=== PATIENT | female | born 1960 | race Caucasian/White ===

== ENCOUNTER → 2017-11-20 | Outpatient (CLI) | payer MEDICARE, OTHER ==
[~2017-11-20] MED LIST: ACETAMINOPHEN-1 EAC1 PO; ADVAIR 100-501 EACH INH; ALBUTEROL INH; ALBUTEROL NEB; ALORA1 EAC1; AMITIZA 24 MCG24 MC1; ATROVENT30 ML; AVAPRO 150 MG150 M1 PO; AZITHROMYCIN 2250 MG PO; BACLOFEN 10MG T10 M1 PO; BACLOFEN 10MG T10 MG PO; BACTRIM DS TAB1 EACH PO; BENADRYL25 MG PO; BIOTIN-D1 GM PO; CALCIUM 500 +1 EAC4 PO; CALCIUM 500 +1 EAC5; CALCIUM 500 +1 EAC5 PO; CARDIZEM CD240 MG PO; CARISOPRODOL 3350 MG PO; CENTRUM SILVER1 EAC4 PO; CLARITIN10 MG PO; DIFLUCAN150 M1 PO; DUONEB 2.5-0.5 M3 ML INH; EPIPEN 2-P0.3 MG/0.3 IM; EPIPEN 2-P0.3 MG/0.3 SUBQ; EPIPEN0.3 MG/0.3; ESTRADIOL0.5 MG PO; FLEXERIL PO; FLONASE 0.05%50 MCG; HYDROCHLOROTH12.5 M1 PO; LIORESAL 10 MG10 MG PO; MACROBID 100 M100 M2 PO; MAXALT MLT10 MG PO; METOPROLOL SUCC25 M1 PO; MORPHINE; MORPHINE 110 MG/1 ML IT; MORPHINE 2 IT; MORPHINE URETHRAL; MUCINEX600 MG PO; MULTIVITAMIN; NAPROSYN500 MG PO; NORCO 5-325 TA1 EACH PO; OMEPRAZOLE20 M2 PO; OXYCONTIN10 M1 PO; PERCOCET 5-3251 EACH; PHENERGAN 25 MG25 M1 PO; PREDNISONE 10 M10 M1 PO; PRILOSEC20 MG; PROVENTIL IH; RANITIDINE HCL300 M1 PO; ROBINUL1 MG PO; SINGULAIR 10 MG10 M1 PO; VENTOLIN HFA 1818 GM INH; VICODIN 5-5001 EACH PO; VIVELLE-DOT1 EAC1; XANAX 0.5 MG0.5 M1 PO; XANAX 0.5 MG0.5 MG PO; XARELTO10 MG PO; ZANTAC 150MG T150 M1 PO; ZANTAC 150MG T150 MG PO; ZINC50 M1 PO; ZOFRAN ODT4 MG PO
[2017-11-20 15:26] LABS: ALBUMIN 3.9 g/dL (3.4-5.0); CREATININE 0.7 mg/dL (0.6-1.3); DIRECT BILIRUBIN 0.1 mg/dL (<0.1-0.3); TOTAL BILIRUBIN 0.3 mg/dL (<0.1-1.0); TOTAL PROTEIN 6.4 g/dL (6.4-8.2)
== END ==
LOC: M.LAB 14:38
PROVIDERS: Anesthesiology Pain Medicine
DX: M96.1 Postlaminectomy syndrome, not elsewhere classified (principal); J45.909 Unspecified asthma, uncomplicated

== ENCOUNTER → 2018-01-22 | Outpatient (CLI) | payer MEDICARE, OTHER | LOC: M.LAB 15:53 | DX: I10 Essential (primary) hypertension (principal); F41.1 Generalized anxiety disorder ==

== ENCOUNTER → 2018-06-15 | Outpatient (CLI) | payer MEDICARE, OTHER | LOC: M.RAD 13:16 | DX: N91.2 Amenorrhea, unspecified (principal); I10 Essential (primary) hypertension; J45.909 Unspecified asthma, uncomplicated; Z78.0 Asymptomatic menopausal state ==

== ENCOUNTER 2018-10-01 01:01 | Emergency (ER) | payer MEDICARE, OTHER ==
[~2018-10-01] VITALS: Ht 170.2 cm; Wt 69.8 kg
[2018-10-01] MEDS ORDERED: PREDNISONE 10 M10 MG (01:11)
[2018-10-01 01:44] LABS: ABSOLUTE MONOCYTES 0.2 thou/uL (0.0-1.2); ABSOLUTE NEUTROPHILS 4.3 thou/uL (1.6-8.1); BASOPHILS 0.5 %; EOSINOPHILS 0.4 %; HEMATOCRIT 40.6 % (37.0-47.0); HEMOGLOBIN 13.4 gm/dL (12.0-15.0); LYMPHOCYTES 18.4 %; MCH 28.4 pg (26.0-34.0); MCV 86.2 fL (80.0-100.0); MONOCYTES 2.9 %; MPV 7.8 fl. (7.2-11.1); NUCLEATED RBCS 0 /100WBC; PLATELET COUNT* 271 thou/uL (150-400); POLYS 77.8 %; WBC 5.5 thou/uL (4.0-11.0)
[2018-10-01 01:52] LABS: ANION GAP 7 mmol/L (7-16); BUN 9 mg/dL (7-18); CALCIUM 9.5 mg/dL (8.5-10.1); CHLORIDE 96 mmol/L (98-107); CO2 30 mmol/L (21-32); CREATININE 0.7 mg/dL (0.6-1.3); GLUCOSE 193 mg/dL (70-99); POTASSIUM 3.9 mmol/L (3.5-5.1); SODIUM 133 mmol/L (136-145)
[2018-10-01 02:19] LABS: ALBUMIN 4.5 g/dL (3.4-5.0); ALKALINE PHOSPHATASE 90 U/L (46-116); LIPASE 166 U/L (73-393); NT-PRO BRAIN NAT PEPTIDE 485 pg/mL (<300); SGOT 24 U/L (15-37); SGPT 30 U/L (30-65); TOTAL BILIRUBIN 0.2 mg/dL (<0.1-1.0); TOTAL PROTEIN 7.4 g/dL (6.4-8.2); TROPONIN-I LEVEL <0.06 ng/mL (<0.06)
[2018-10-01 02:30] LABS: MAGNESIUM 1.7 mg/dL (1.8-2.4)
[2018-10-01 05:22] LABS: URINE BILIRUBIN NEGATIVE (Negative); URINE BLOOD NEGATIVE (Negative); URINE CLARITY CLEAR; URINE COLOR YELLOW; URINE GLUCOSE-RANDOM NEGATIVE (Negative); URINE KETONES NEGATIVE (Negative); URINE LEUKOCYTES-REFLEX NEGATIVE (Negative); URINE NITRITE-REFLEX NEGATIVE (Negative); URINE PROTEIN NEGATIVE (Negative); URINE SPECIFIC GRAVITY 1.015 (1.005-1.030); URINE UROBILINOGEN 0.2 E.U./dl (0.2-1.0)
[2018-10-01 05:35] VITALS: BP 177/92
--- NOTE | 2018-10-01 09:54 | EKG ---
[place] [address] ELECTROCARDIOGRAM REPORT Name: ABBEY COVINGTON Room: [facility]#: [id number] Admission: 10/01/18 Attend Phys: Discharge: 10/01/18 Date of : 56 Report #: [id number] THIS REPORT FOR: //name// [facility] ED Test Date: 2018-10-01 Test Time: 01:07:05 Pat Name: ABBEY OLIVEIRA Department: Room: Gender: F Solar Power Installer: : 1960 Requested By: Jamshid Marcial Order Number: [id number] MD: Marcin Joyce Measurements Intervals [place] Rate: 113 P: 46 [place]: 177 QRS: 2 QRSD: 94 T: 16 QT: 297 QTc: 408 Interpretive Statements Sinus tachycardia poor r wave progression Probable left atrial enlargement Left ventricular hypertrophy Compared to ECG 03/03/2017 19:23:46 no change Electronically Signed On 10-01-2018 9:53:54 MANAGER PROPOSAL by Marcin Joyce [email or web address] <ELECTRONICALLY SIGNED> By: Marcin Joyce MD, [facility] 10/01/18 0953 0107 010 Marcin Joyce MD, [facility] /EPI
--- NOTE | 2018-10-01 09:57 | EKG ---
[place] [address] ELECTROCARDIOGRAM REPORT Name: ABBEY COVINGTON Room: [facility]#: [id number] Admission: 10/01/18 Attend Phys: Discharge: 10/01/18 Date of : 56 Report #: [id number] THIS REPORT FOR: //name// [facility] ED Test Date: 2018-10-01 Test Time: 03:40:58 Pat Name: ABBEY OLIVEIRA Department: Room: Gender: F Rn First Assistant: [facility] : 1960 Requested By: Jamshid Marcial Order Number: [id number] MD: Marcin Joyce Measurements Intervals [place] Rate: 105 P: 53 [place]: 194 QRS: 12 QRSD: 83 T: 15 QT: 319 QTc: 422 Interpretive Statements Sinus tachycardia Probable left atrial enlargement poor r wave progression Probable left ventricular hypertrophy Electronically Signed On 10-01-2018 9:57:15 BRANCH MAKER by Marcin Joyce [email or web address] <ELECTRONICALLY SIGNED> By: Marcin Joyce MD, [facility] 10/01/18 0957 0340 0340 Marcin Joyce MD, FACC /EPI
== END 2018-10-01 05:40 | disposition home or self-care (01) ==
LOC: M.ERS 01:01
PROVIDERS: Emergency Medicine Emergency Medical Services
DX: R51 Headache (principal); R00.2 Palpitations; J45.909 Unspecified asthma, uncomplicated; M54.9 Dorsalgia, unspecified; G89.29 Other chronic pain; K21.9 Gastro-esophageal reflux disease without esophagitis; I10 Essential (primary) hypertension; Z90.710 Acquired absence of both cervix and uterus; Z88.1 Allergy status to other antibiotic agents; Z88.0 Allergy status to penicillin; Z88.8 Allergy status to other drugs, medicaments and biological substances

== ENCOUNTER 2018-10-20 15:24 | Inpatient (IN) | payer MEDICARE ==
[~2018-10-20] VITALS: Ht 170.2 cm; Wt 79.5 kg
[~2018-10-20 15:24] MED LIST changes: +PREDNISONE 10 M10 MG
[2018-10-20 15:29] VITALS: BP 177/91
[2018-10-20 15:51] LABS: ABSOLUTE EOSINOPHILS 0.1 thou/uL (0.0-0.7); ABSOLUTE LYMPHOCYTES 1.8 thou/uL (0.8-5.3); ABSOLUTE MONOCYTES 0.6 thou/uL (0.0-1.2); ABSOLUTE NEUTROPHILS 3.2 thou/uL (1.6-8.1); BASOPHILS 0.7 %; HEMATOCRIT 41.4 % (37.0-47.0); HEMOGLOBIN 13.9 gm/dL (12.0-15.0); LYMPHOCYTES 31.4 %; MCH 28.8 pg (26.0-34.0); MCHC 33.7 g/dL (28.0-37.0); MCV 85.5 fL (80.0-100.0); MONOCYTES 10.6 %; MPV 7.3 fl. (7.2-11.1); NUCLEATED RBCS 0 /100WBC; PLATELET COUNT* 272 thou/uL (150-400); POLYS 56.3 %; RBC 4.84 mil/uL (4.20-5.00); RDW-CV 14.1 % (10.5-14.5); WBC 5.6 thou/uL (4.0-11.0)
[2018-10-20 16:14] LABS: ANION GAP 9 mmol/L (7-16); BUN 12 mg/dL (7-18); CALCIUM 9.4 mg/dL (8.5-10.1); CHLORIDE 93 mmol/L (98-107); CO2 30 mmol/L (21-32); CREATININE 0.7 mg/dL (0.6-1.3); GLUCOSE 160 mg/dL (70-99); POTASSIUM 3.8 mmol/L (3.5-5.1); SODIUM 132 mmol/L (136-145)
[2018-10-20 16:25] LABS: ALBUMIN 4.3 g/dL (3.4-5.0); ALKALINE PHOSPHATASE 89 U/L (46-116); LIPASE 153 U/L (73-393); MAGNESIUM 1.6 mg/dL (1.8-2.4); NT-PRO BRAIN NAT PEPTIDE 65 pg/mL (<300); SGOT 17 U/L (15-37); SGPT 21 U/L (30-65); TOTAL BILIRUBIN 0.3 mg/dL (<0.1-1.0); TOTAL PROTEIN 7.3 g/dL (6.4-8.2); TROPONIN-I LEVEL <0.06 ng/mL (<0.06)
[2018-10-20 18:25] VITALS: BP 162/84
[2018-10-20 18:50] VITALS: BP 160/80
[2018-10-20] MEDS ORDERED: MOBIC15 MG PO (19:25)
[2018-10-20] MEDS ORDERED: AVAPRO75 MG PO (19:26)
[2018-10-20] MEDS ORDERED: PAIN PUMP (19:30)
[2018-10-20 20:21] VITALS: BP 150/84
[2018-10-21] VITALS: BP 113/63
[2018-10-21 04:00] VITALS: BP 142/71
[2018-10-21 05:22] LABS: ABSOLUTE EOSINOPHILS 0.1 thou/uL (0.0-0.7); ABSOLUTE LYMPHOCYTES 2.1 thou/uL (0.8-5.3); ABSOLUTE MONOCYTES 0.7 thou/uL (0.0-1.2); BASOPHILS 0.6 %; EOSINOPHILS 0.9 %; HEMATOCRIT 39.5 % (37.0-47.0); HEMOGLOBIN 13.3 gm/dL (12.0-15.0); LYMPHOCYTES 30.3 %; MCH 28.4 pg (26.0-34.0); MCHC 33.6 g/dL (28.0-37.0); MCV 84.6 fL (80.0-100.0); MPV 7.5 fl. (7.2-11.1); NUCLEATED RBCS 0 /100WBC; PLATELET COUNT* 268 thou/uL (150-400); POLYS 58.2 %; RBC 4.66 mil/uL (4.20-5.00); WBC 6.8 thou/uL (4.0-11.0)
[2018-10-21 05:38] LABS: CALCIUM 9.6 mg/dL (8.5-10.1); CREATININE 0.7 mg/dL (0.6-1.3); POTASSIUM 3.4 mmol/L (3.5-5.1)
[2018-10-21 08:10] VITALS: BP 145/73
[2018-10-21 11:12] VITALS: BP 134/75
--- NOTE | 2018-10-21 13:52 | EKG ---
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1960 Requested By: Jamshid Marcial Order Number: [id number] MD: Marcin Joyce Measurements Intervals [place] Rate: 105 P: 60 CT: 203 QRS: 41 QRSD: 89 T: 12 QT: 335 QTc: 443 Interpretive Statements Sinus tachycardia LAE, consider biatrial enlargement Left ventricular hypertrophy Anterior infarct, old Compared to ECG 10/01/2018 03:40:58 no change Electronically Signed On 10-21-2018 13:52:07 VENEER SPLICER by Marcin Joyce [email or web address] <ELECTRONICALLY SIGNED> By: Marcin Joyce MD, FAC 10/21/18 1352 1530 1530 Marcin Joyce MD, [facility] /EPI
--- NOTE | 2018-10-22 10:46 | CON ---
[address] [address] CONSULTATION Name: ABBEY COVINGTON Room: [address] M.R.#: [id number] Admission: 10/20/18 Attend Phys: Darius Taylor MD Discharge: 10/21/18 Date of : 56 Report #: [id number] THIS REPORT FOR: //name// CC: Darius Ramirez MD DATE OF SERVICE: 10/21/2018 TYPE OF REPORT: Cardiology consultation. HISTORY OF PRESENT ILLNESS: The patient is a 58-year-old white female who I was asked to see in the hospital today after she complained of tachycardia. The patient has an extensive past medical history. She previously was followed by my partner, Dr. Harvey who recently retired. She has had multiple hospitalizations here at [facility]. She was actually seen by Dr. Harvey back in 2012 when she complained of chest pain. She noticed that time to have sinus tachycardia with PACs and PVCs. She has had extensive cardiac workup in the past. She underwent a nuclear stress test in 2011 that showed no evidence of ischemia with an ejection fraction of 64%. She had an echocardiogram in 2016 that showed a normal ejection fraction. The patient was actually last admitted here to [facility] in February of 2017 with pneumonia. She has a long history of palpitations. She has been on a beta sil in the past but cannot tolerate them. She actually came to the Emergency Room in [place] complained of palpitation. She was noted to be in a sinus tachycardia. She sent home from the Emergency Room. She was seen by my nurse practitioner and given an event recorder. She just received event recorder yesterday. The patient states that last night she felt her heart racing, her blood pressure elevated, she felt short of breath, her hands were tingling and she felt lightheaded and nauseated. She came to the Emergency Room and was admitted. I was asked to see her for further evaluation and treatment. She is not very active, does go for walks. She has chronic back pain, has a morphine pump in place. She had a nerve stimulator at one time but did not seem to get any relief. She continues to go to the pain clinic. She denies any significant chest pain or dyspnea on exertion or edema. She has had no syncope. PAST MEDICAL HISTORY: She has had a hysterectomy, surgery for pectus excavatum in the past and she has had back surgery. She has a history of hypertension but no history of diabetes. MEDICATIONS: Consists of the following: She is on albuterol inhaler for asthma, Xanax, baclofen, Soma and inhaler for asthma, Avapro for hypertension, Mobic, Singulair and ranitidine. ALLERGIES: She has an intolerance to multiple medications including DOXYCYCLINE, LEVOFLOXACIN, PENICILLIN [place] [address] CONSULTATION Name: ALISA ABBEY OLIVEIRA Room: [address]#: [id number] Admission: 10/20/18 Attend Phys: Darius Taylor MD Discharge: 10/21/18 Date of : 56 Report #: [id number] FAMILY HISTORY: Her mother had bypass surgery. SOCIAL HISTORY: She is . She and her live in [place]. She is not working at this time. Nonsmoker. Rarely drinks alcohol. REVIEW OF SYSTEMS: There has been no history of stroke. She does have asthma. No history of peptic ulcer disease, liver disease, kidney disease or cancer. She does wear glasses. No history of psychiatric illness. PHYSICAL EXAMINATION: GENERAL: Revealed a middle-aged female, appeared in no distress. VITAL SIGNS: She had a blood pressure of 130/70 and pulse is 80. HEENT: She was anicteric. Conjunctivae pink. Mucous members moist. NECK: Veins nondistended. No carotid bruits. Neck supple. CHEST: Clear to auscultation. CARDIOVASCULAR: Regular rate and rhythm. ABDOMEN: Soft and nontender. EXTREMITIES: Had no edema. SKIN: Warm and dry. NEUROLOGICAL: Nonfocal. PSYCHIATRIC AND MOOD: She appeared somewhat depressed. CARDIOLOGICAL DATA: ECG on admission showed a sinus tachycardia with nonspecific ST-segment changes. On the monitor, she has remained in sinus rhythm. LABORATORY DATA: Her workup: Sodium 133 and creatinine 0.7. Liver function studies were normal. Troponin 0.06. TSH 0.7. White blood cell count 6.8 and hemoglobin 13.3. RADIOLOGICAL DATA: X-rays, she had CT scan of the chest using a PE protocol that showed no evidence of pulmonary embolus, mild interstitial lung markings were noted. Previous CT scan of the head done several weeks ago showed no acute abnormality. Her chest x-ray last night showed dextroscoliosis, otherwise unchanged. IMPRESSION AND RECOMMENDATIONS: 1. Palpitations. The patient had an event recorder on last night that showed no significant arrhythmia. I would not treat at this time. 2. Chronic back pain. The patient has a morphine pump in place. 3. Hypertension. The patient is on an angiotensin receptor sil. 4. Asthma. 5. Complaints of intermittent episodes of elevated heart rate and blood [address] [address] CONSULTATION Name: ABBEY COVINGTON Room: [address]#: [id number] Admission: 10/20/18 Attend Phys: Darius Taylor MD Discharge: 10/21/18 Date of : 56 Report #: [id number]. The patient does have a history of headaches. I would consider a 24-hour urine screen to evaluate for a pheochromocytoma. <ELECTRONICALLY SIGNED> By: Marcin Joyce MD, FACC 10/22/18 1046 1638 [id number] Joyce MD, FACC /nt
[2018-10-24 07:35] LABS: METANEPHRINE-PL 30 pg/mL (0-62); NORMETANEPHRINE - PL 75 pg/mL (0-145)
== END 2018-10-21 13:50 | disposition home or self-care (01) | DRG 641 ==
LOC: M.ERS 15:24 → M.TBA-ER 16:54 → M.2W 16:54
PROVIDERS: Emergency Medicine Emergency Medical Services; ADMIT Internal Medicine
DX: E87.1 Hypo-osmolality and hyponatremia (principal); F11.20 Opioid dependence, uncomplicated; R07.89 Other chest pain; F41.9 Anxiety disorder, unspecified; M19.90 Unspecified osteoarthritis, unspecified site; I10 Essential (primary) hypertension; J45.909 Unspecified asthma, uncomplicated; G89.29 Other chronic pain; M54.9 Dorsalgia, unspecified; Z88.1 Allergy status to other antibiotic agents; Z90.710 Acquired absence of both cervix and uterus; Z79.899 Other long term (current) drug therapy; Z88.0 Allergy status to penicillin; Z88.8 Allergy status to other drugs, medicaments and biological substances

== ENCOUNTER → 2018-11-13 | Outpatient (CLI) | payer MEDICARE, OTHER ==
[~2018-11-13] MED LIST changes: +AVAPRO75 MG PO; +MOBIC15 MG PO; +PAIN PUMP
== END ==
LOC: M.ULTRA 10:25
DX: E04.1 Nontoxic single thyroid nodule (principal)

== ENCOUNTER → 2018-12-07 | Outpatient (CLI) | payer MEDICARE, OTHER ==
[2018-12-07 16:10] LABS: CALCIUM 8.8 mg/dL (8.5-10.1); CREATININE 0.6 mg/dL (0.6-1.3); POTASSIUM 4.4 mmol/L (3.5-5.1); TOTAL BILIRUBIN 0.3 mg/dL (<0.1-1.0); TOTAL PROTEIN 6.5 g/dL (6.4-8.2)
== END ==
LOC: M.LAB 15:31
PROVIDERS: Nurse Practitioner
DX: I47.1 Supraventricular tachycardia (principal)

== ENCOUNTER → 2018-12-28 | Outpatient (CLI) | payer MEDICARE, OTHER ==
--- NOTE | 2018-12-28 17:20 | CARDNUC ---
[place] [address] CARDIAC NUCLEAR IMAGING REPORT Name: ALISAABBEY CRAWFORD Room: [facility]#: [id number] Admission: 12/28/18 Attend Phys: Shaji Vasquez, Discharge: Date of : 56 Date of Service: 12/28/18 1720 Report #: [id number] THIS REPORT FOR: //name// APPROVED REPORT Study performed: 12/28/2018 07:30:00 Indication: Dyspnea, NSVT, PSVT, PVC's, Chronic Fatigue, Palpitations. Patient Location: Out-Patient Stress Tech: Tammy Montelongo Stress Nurse: Sarahy Sanchez RN Ht: 5 ft 5 in Wt: 151 lbs BSA: 1.76 m2 BMI: 25.12 Medical History Medical History: SOB, HTN, NSVT, PSVT, Palpitations, Increased Fatigue, PVC's. Medications: Metoprolol, Avapro. Allergies: Doxycycline, Flonase, Penicillins, Tramadol, Cardiac Risk Factors: Age, HTN, FHX of CAD, SOB. Previous Cardiac Procedures: None Pretest Chest Pain Characteristics: No chest pain Exercise History: Indeterminate Physical Disabilities: Hip replacement, Back pain. Meds Held (24 hrs): Metoprolol. Resting Data Rest SPECT myocardial perfusion imaging was performed in supine position 30 minutes following the intravenous injection of 10.7 mCi of Tc-99m Sestamibi. Time of rest injection: 07:55 The images were gated to evaluate regional wall motion and calculate left ventricular ejection fraction. Administration Route: IV Administration Site: Right Hand Pharmacologic Stress Pharmacologic stress test was performed by injecting Regadenoson 0.4 mg IV push over 10-15 seconds immediately followed by the intravenous injection of 34.2 mCi of Tc-99m Sestamibi. Time of stress injection: 09:40 Administration Route: IV Administration Site: [place] [address] CARDIAC NUCLEAR IMAGING REPORT Name: ABBEY COVINGTON Room: [facility]#: [id number] Admission: 12/28/18 Attend Phys: Shaji Vasquez, Discharge: Date of : 56 Date of Service: 12/28/18 1720 Report #: [id number] Heart Rate at time of stress injection: 132 bpm. Gated Stress SPECT was performed 40 minutes after stress injection. The images were gated to evaluate regional wall motion and calculate left ventricular ejection fraction. Prone imaging was performed. Stress Test Details Stress Test: Pharmacologic stress was paired with low level exercise. HR Max Heart Rate (APMHR): 160 bpm Resting HR: 72 bpm Target HR (85% APMHR): 136 bpm Max HR Achieved: 132 bpm % of APMHR: 82 Recovery HR: 94 bpm BP Resting BP: 176/103 mmHg Max BP: 195/73 mmHg Recovery BP: 172/87 mmHg ECG Resting ECG: Sinus Rhythm Stress ECG: Sinus Tachycardia ST Change: None Arrhythmia: None Recovery ECG: Sinus Rhythm Recovery ST Change: None Recovery Arrhythmia: None Clinical Reason for Termination: Completed protocol Stress Symptoms: SOA, Lightheaded, pressure in chest. Exercise duration: 4 min 00 sec Exercise capacity: 2.30 METs The patient tolerated Lexiscan infusion without significant symptoms. Nurse Comments 58 year old female presented for walking Lexiscan, patient stated she could walk slow and flat with her hip and back problems. Patient tolerated walking Lexiscan well. Recovery unremarkable. Patient escorted by staff to Nuclear Medicine for images. Patient stable with no [place] [address] CARDIAC NUCLEAR IMAGING REPORT Name: ABBEY COVINGTON Room: [facility]#: [id number] Admission: 12/28/18 Attend Phys: Shaji Vasquez, Discharge: Date of : 56 Date of Service: 12/28/18 1720 Report #: [id number] Stress ECG Conclusion The baseline 12-lead EKG shows sinus rhythm without significant ST or T wave abnormalities. EKGs obtained during and post Lexiscan infusion show sinus rhythm and sinus tachycardia with no significant ST or T wave changes when compared baseline. There were no stress-induced arrhythmias. Study Quality Study: Good Artifact: No artifact Study Data At rest, the left ventricular ejection fraction was 67%.. Post stress, the left ventricular ejection was 73%.. TID = 0.91. Perfusion Normal left ventricular perfusion. Wall Motion Normal left ventricular wall motion. Nuclear Conclusion ECG Findings: negative for ischemia Clinical Findings: negative for ischemia Nuclear Findings: negative for ischemia Exercise Capacity: not assessed Left Ventricular Function: normal Risk Study: low Myocardial perfusion images show no defect to suggest infarct or ischemia. Left ventricular systolic function is normal on gated studies. This is a low risk study. <Conclusion> The baseline 12-lead EKG shows sinus rhythm without significant ST or T wave abnormalities. EKGs obtained during and post Lexiscan infusion show sinus rhythm and sinus tachycardia with no significant ST or T wave changes when compared baseline. There were no stress-induced arrhythmias. <ELECTRONICALLY SIGNED> By: Shaji Vasquez MD, FACC 12/28/181719 19 19 Shaji Vasquez MD, FACC /INF
== END ==
LOC: M.NUC 12-10 15:37 → M.SLEEPLAB 12-21 09:45 → M.NUC 07:35
DX: I10 Essential (primary) hypertension (principal); I47.1 Supraventricular tachycardia; I47.2 Ventricular tachycardia

== ENCOUNTER → 2019-01-12 | Outpatient (CLI) | payer MEDICARE, OTHER ==
--- NOTE | 2019-01-12 15:36 | 2DMMODE ---
[place] [address] 2 D/M-MODE ECHOCARDIOGRAM Name: ABBEY COVINGTON Room: [facility]#: [id number] Admission: 01/12/19 Attend Phys: Shaji Vasquez, Discharge: Date of : 56 Date of Service: 01/12/19 1535 Report #: [id number] THIS REPORT FOR: //name// APPROVED REPORT Study performed: 01/12/2019 10:25:44 EXAM: Comprehensive 2D, Doppler, and color-flow Echocardiogram Patient Location: Out-Patient BSA: 1.76 HR: 76 bpm BP: 162/72 mmHg Other Information Study Quality: Good Indications Tachycardia 2D Dimensions IVSd: 12.26 (7-11mm) LVOT Diam: 20.11 (18-24mm) LVDd: 40.16 mm PWd: 10.74 (7-11mm) Ascending Ao: 28.62 (22-36mm) LVDs: 26.24 (25-40mm) Aortic Root: 24.96 mm Volumes Left Atrial Volume (Systole) LA ESV Index: 17.10 mL/m2 Aortic Valve AoV Peak [place].: 0.94 m/s AO Peak Gr.: 3.50 mmHg LVOT Max P.68 mmHg AO Mean Gr.: 1.96 mmHg LVOT Mean P.39 mmHg LVOT Max V: 0.82 m/s AO V2 VTI: 18.30 cm LVOT Mean V: 0.55 m/s SHA[place]LE (VTI): 3.41 cm2 LVOT V1 VTI: 19.68 cm Mitral Valve E/A Ratio: 1.00 MV Decel. Time: 229.99 ms MV E Max [place].: 0.55 m/s MV PHT: 66.70 ms MVA (PHT): 3.30 [place] [address] 2 D/M-MODE ECHOCARDIOGRAM Name: ABBEY COVINGTON Room: [facility]#: [id number] Admission: 01/12/19 Attend Phys: Shaji Vasquez, Discharge: Date of : 56 Date of Service: 01/12/19 1535 Report #: [id number] TDI E/Lateral E': 4.58 E/Medial E': 6.88 Medial E' Kol[place].: 0.08 m/s Lateral E' [place].: 0.12 m/s Pulmonary Valve PV Peak [place].: 0.77 m/s PV Peak Gr.: 2.39 mmHg Tricuspid Valve RAP Estimate: 5.00 mmHg TR Peak Gr.: 22.37 mmHg RVSP: 27.37 mmHg PA Pressure: 27.37 mmHg Left Ventricle The left ventricle is normal size. There is normal LV segmental wall motion. There is normal left ventricular wall thickness. Left ventricular systolic function is normal. LVEF is 55-60%. Transmitral Doppler flow pattern suggests impaired LV relaxation. Right Ventricle The right ventricle is normal size. The right ventricular systolic function is normal. Atria The left atrium size is normal. The right atrium size is normal. Aortic Valve The aortic valve is normal in structure. No aortic regurgitation is present. There is no aortic valvular stenosis. Mitral Valve The mitral valve is normal in structure. Mild mitral regurgitation. No evidence of mitral valve stenosis. Tricuspid Valve The tricuspid valve is normal in structure. Trace to mild tricuspid regurgitation. No pulmonary hypertension. Pulmonic Valve The pulmonary valve is normal in structure. There is no pulmonic valvular regurgitation. Great Vessels The aortic root is normal in size. IVC [place] [address] 2 D/M-MODE ECHOCARDIOGRAM Name: ALISA OLIVEIRAABBEY CATARINO Room: [facility]#: [id number] Admission: 01/12/19 Attend Phys: Shaji Vasquez, Discharge: Date of : 56 Date of Service: 01/12/19 1535 Report #: [id number] collapses >50% with inspiration. Pericardium There is no pericardial effusion. <Conclusion> The left ventricle is normal size. There is normal left ventricular wall thickness. Left ventricular systolic function is normal. LVEF is 55-60%. Transmitral Doppler flow pattern suggests impaired LV relaxation. Mild mitral regurgitation. Trace to mild tricuspid regurgitation. No pulmonary hypertension. IVC is normal in size and collapses >50% with inspiration. <ELECTRONICALLY SIGNED> By: Shaji Vasquez MD, FACC 01/12/19 1535 1535 1535 Shaji Vasquez MD, FACC /INF
--- NOTE | 2019-01-27 21:51 | SLEEP ---
[address] [address] SLEEP STUDY REPORT Name: ABBEY COVINGTON Room: [facility]#: [id number] Admission: 01/12/19 Attend Phys: Shaji Vasquez MD Discharge: Date of : 56 Report #: [id number] THIS REPORT FOR: //name// CC: Erica Vasquez This study has been reviewed in its entirety by a board certified sleep specialist DATE OF SERVICE: 01/12/2019 HOME SLEEP STUDY. ATTENDING PHYSICIAN: Dr. Shaji Vasquez. The patient is a 58-year-old who weighs 150 pounds with a BMI of 25. The patient's [place] score was 8. The patient underwent home sleep study at [facility]. Total recording time was 452 minutes. During the night study, the patient has no obstructive central or mixed apneas. There were no hypopneas. The patient's apnea-hypopnea index for the entire night was 0 per hour. Flow was noted to be low intermittently but did not met the hypopnea criteria to be scored. Nocturnal oximetry study revealed an average oxygen saturation of 93%, with lows of 86%. Only 3.4 minutes were spent at an oxygen saturation of less than 90%. Mean heart rate was 70 beats per minute. IMPRESSION: 1. No clinically significant sleep disorder breathing. The patient's AHI for the entire night was 0 per hour. 2. No clinically significant nocturnal hypoxia. RECOMMENDATIONS: 1. The patient does not meet the criteria for CPAP initiation. 2. If clinical suspicion for sleep apnea is still high , consider in lab PSG. 2. Avoid ZINC CHLORIDE OPERATOR depressants. <ELECTRONICALLY SIGNED> By: Richy Trejo MD 01/27/19 2151 1529 1753Abarnum Maggie Trejo MD /nt
== END ==
LOC: M.SLEEPLAB 12-21 09:00 → M.CRD 12-21 09:00 → M.SLEEPLAB 12-22 08:00 → M.CRD 12-29 14:00 → M.SLEEPLAB 12-29 14:00 → M.CRD 11:00
DX: I47.1 Supraventricular tachycardia (principal); I47.2 Ventricular tachycardia; R43.0 Anosmia; I34.0 Nonrheumatic mitral (valve) insufficiency; R40.0 Somnolence; I10 Essential (primary) hypertension; R53.82 Chronic fatigue, unspecified; I49.3 Ventricular premature depolarization; G47.30 Sleep apnea, unspecified; Z88.8 Allergy status to other drugs, medicaments and biological substances; Z88.0 Allergy status to penicillin; Z88.1 Allergy status to other antibiotic agents

== ENCOUNTER → 2019-02-23 | Outpatient (CLI) | payer MEDICARE, OTHER ==
[2019-02-23 14:29] LABS: ABSOLUTE BASOPHILS 0.1 thou/uL (0.0-0.2); ABSOLUTE EOSINOPHILS 0.1 thou/uL (0.0-0.7); ABSOLUTE LYMPHOCYTES 1.9 thou/uL (0.8-5.3); ABSOLUTE MONOCYTES 0.4 thou/uL (0.0-1.2); ABSOLUTE NEUTROPHILS 3.2 thou/uL (1.6-8.1); HEMATOCRIT 38.3 % (37.0-47.0); HEMOGLOBIN 12.9 gm/dL (12.0-15.0); LYMPHOCYTES 33.8 %; MCH 28.9 pg (26.0-34.0); MCHC 33.6 g/dL (28.0-37.0); MONOCYTES 7.7 %; MPV 7.9 fl. (7.2-11.1); NUCLEATED RBCS 0 /100WBC; PLATELET COUNT* 253 thou/uL (150-400); POLYS 55.5 %; RBC 4.45 mil/uL (4.20-5.00); WBC 5.8 thou/uL (4.0-11.0)
== END ==
LOC: M.LAB 14:11
PROVIDERS: Nurse Practitioner Family
DX: R19.7 Diarrhea, unspecified (principal)

== ENCOUNTER → 2019-09-23 | Outpatient (CLI) | payer MEDICARE, OTHER ==
[2019-09-23 09:11] LABS: ANION GAP 7 mmol/L (7-16); BUN 13 mg/dL (7-18); CALCIUM 8.6 mg/dL (8.5-10.1); CHLORIDE 104 mmol/L (98-107); CHOLESTEROL 170 mg/dL (<200); CO2 29 mmol/L (21-32); CREATININE 0.6 mg/dL (0.6-1.3); GLUCOSE 81 mg/dL (70-99); HDL CHOLESTEROL 53 mg/dL (>40); LDL CHOLESTEROL 101 mg/dL (<100); POTASSIUM 3.8 mmol/L (3.5-5.1); SERUM ASSESSMENT Clear; SODIUM 140 mmol/L (136-145); TC:HDL 3.2 Ratio (Not establshd); TRIGLYCERIDE 83 mg/dL (<150); VLDL 17 mg/dL (<40)
[2019-09-24 02:07] LABS: GLYCOHEMOGLOBIN (HGB A1C) 5.1 % (4.8-5.6)
== END ==
LOC: M.LAB 08:17
PROVIDERS: Internal Medicine Cardiovascular Disease
DX: I47.1 Supraventricular tachycardia (principal); I10 Essential (primary) hypertension; Z82.49 Family history of ischemic heart disease and other diseases of the circulatory system; Z79.899 Other long term (current) drug therapy

== ENCOUNTER → 2019-11-18 | Outpatient (CLI) | payer MEDICARE, OTHER ==
[2019-11-18 16:02] LABS: ABSOLUTE EOSINOPHILS 0.1 thou/uL (0.0-0.7); ABSOLUTE LYMPHOCYTES 1.5 thou/uL (0.8-5.3); ABSOLUTE MONOCYTES 0.3 thou/uL (0.0-1.2); ABSOLUTE NEUTROPHILS 3.8 thou/uL (1.6-8.1); BASOPHILS 0.8 %; EOSINOPHILS 1.3 %; HEMATOCRIT 39.8 % (37.0-47.0); HEMOGLOBIN 13.4 gm/dL (12.0-15.0); LYMPHOCYTES 26.4 %; MCH 29.6 pg (26.0-34.0); MCHC 33.8 g/dL (28.0-37.0); MCV 87.5 fL (80.0-100.0); MONOCYTES 5.7 %; MPV 7.7 fl. (7.2-11.1); NUCLEATED RBCS 0 /100WBC; PLATELET COUNT* 239 thou/uL (150-400); POLYS 65.8 %; RBC 4.55 mil/uL (4.20-5.00); RDW-CV 13.8 % (10.5-14.5); WBC 5.8 thou/uL (4.0-11.0)
== END ==
LOC: M.LAB 15:20
PROVIDERS: Nurse Practitioner Family
DX: R19.7 Diarrhea, unspecified (principal)

== ENCOUNTER → 2019-11-23 | Outpatient (CLI) | payer MEDICARE, OTHER | LOC: M.LAB 08:32 | DX: R19.7 Diarrhea, unspecified (principal) ==

== ENCOUNTER → 2019-12-02 | Outpatient (CLI) | payer MEDICARE, OTHER | LOC: M.RAD 09:51 | DX: R05 Cough (principal); M41.84 Other forms of scoliosis, thoracic region ==

== ENCOUNTER → 2020-07-19 | Outpatient (CLI) | payer OTHER | LOC: M.CT 07-13 11:00 | PROVIDERS: ATTEND Internal Medicine Cardiovascular Disease | DX: Z13.6 Encounter for screening for cardiovascular disorders (principal); I25.10 Atherosclerotic heart disease of native coronary artery without angina pectoris ==

== ENCOUNTER → 2020-12-25 | Outpatient (CLI) | payer MEDICARE, OTHER | LOC: M.RAD 12-21 09:58 → M.CT 12:40 | DX: M48.061 Spinal stenosis, lumbar region without neurogenic claudication (principal); M25.78 Osteophyte, vertebrae; M43.27 Fusion of spine, lumbosacral region ==

== ENCOUNTER → 2021-07-23 | Outpatient (CLI) | payer MEDICARE, OTHER | LOC: M.ULTRA 09:00 | PROVIDERS: ATTEND Internal Medicine | DX: R10.84 Generalized abdominal pain (principal); R19.7 Diarrhea, unspecified ==